=== PATIENT | female | born 1990 | race African-American/Black ===

== ENCOUNTER → 2017-04-24 | Outpatient (CLI) | payer MEDICAID ==
--- NOTE | 2017-04-25 10:30 | RADIOLOGY REPORT (SQ) ---
EXAM DESCRIPTION: U/S THYROID/SFT TISS HD NECK COMPLETED DATE/TIME: 04/24/2017 7:09 pm REASON FOR STUDY: LOCALIZED ENLARGED LYMPH NODES R59.0 LOCALIZED ENLARGED LYMPH NODES COMPARISON: None. TECHNIQUE: Dynamic and static romero-scale images acquired of the thyroid gland. Selected additional c olor/power Doppler images recorded. All images stored to PACS. LIMITATIONS: None. FINDINGS: RIGHT LOBE: Normal size, 4.3 x 1.4 x 1.3 cm in size. Homogeneous echotexture. No solid ma sses. 3 mm right mid benign colloid cyst. LEFT LOBE: Normal size, 3.5 x 1.3 x 0.9 cm in size. . Homogeneous echotexture. No solid masses. 3 mm left lower pole benign colloid cyst. ISTHMUS: Normal size. Homogeneous echotexture. No cystic or solid masses. OTHER: In the right submandibular region, a 9 x 5 x 7 mm lymph node, and a 1.3 x 1 x 0.7 cm lymph nod e are present. These have normal central hilar fat. No worrisome features. For comparison, ultrasound of the left submandibular region was performed. Benign-appearing 1.3 x 1 cm lymph node is present with central hilar fat, no worrisome features. IMPRESSION: NORMAL THYROID ULTRASOUND. Small bilateral submandibular triangle lymph nodes without worrisome features. TECHNICAL DOCUMENTATION: JOB ID: [id number] [employer]- All Rights Reserved
== END ==
LOC: RAD 18:00
PROVIDERS: ATTEND Family Medicine
DX: R59.0 Localized enlarged lymph nodes (principal)
CPT/HCPCS: 76536

== ENCOUNTER → 2017-05-14 | Outpatient (CLI) | payer SELFPAY ==
[2017-05-14 13:32] LABS: CHLAM PCR NOT DETECTED (NOT DETECT)
== END ==
LOC: LAB 11:52
PROVIDERS: ATTEND Nurse Practitioner Acute Care
DX: M54.5 Low back pain (principal); N89.8 Other specified noninflammatory disorders of vagina
CPT/HCPCS: 87086; 87210; 87491; 87591

== ENCOUNTER 2017-07-20 13:31 | Emergency (ER) | payer MEDICAID, OTHER ==
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
[2017-07-20 16:35] VITALS: BP 104/58
== END 2017-07-20 16:34 | disposition home or self-care (01) ==
LOC: ER 13:31
DX: S16.1XXA Strain of muscle, fascia and tendon at neck level, initial encounter (principal); R07.89 Other chest pain; V49.40XA Driver injured in collision with unspecified motor vehicles in traffic accident, initial encounter
CPT/HCPCS: 71046; 99283

== ENCOUNTER 2019-01-25 00:23 | Emergency (ER) | payer OTHER, MEDICAID ==
[2019-01-25] MEDS ORDERED: ONDANSETRON 4 MG TAB.RAPDIS PO ONE (04:53)
[2019-01-25] MEDS ORDERED: HYDROCODONE/ACETAMINOPHEN 5-325 MG TABLET PO ONE (04:53)
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
[2019-01-25] MEDS ORDERED: HYDROCODONE/ACETAMINOPHEN 5-325 MG (6 TAB/ER DISP) PO PRN (07:07)
[2019-01-25 07:33] VITALS: BP 118/78
== END 2019-01-25 07:31 | disposition home or self-care (01) ==
LOC: ER 00:23
DX: S80.12XA Contusion of left lower leg, initial encounter (principal); S40.022A Contusion of left upper arm, initial encounter; M25.552 Pain in left hip; M25.522 Pain in left elbow; M25.512 Pain in left shoulder; M79.652 Pain in left thigh; V49.40XA Driver injured in collision with unspecified motor vehicles in traffic accident, initial encounter
CPT/HCPCS: 99283; 73080; 73502; 73030; 73590; S0119

== ENCOUNTER → 2019-03-26 | Outpatient (CLI) | payer OTHER, MEDICAID ==
--- NOTE | 2019-03-26 17:03 | RADIOLOGY REPORT (SQ) ---
EXAM DESCRIPTION: C SP 3 VWS OR LESS COMPLETED DATE/TIME: 03/26/2019 3:59 pm REASON FOR STUDY: PARESTHESIA OF SKIN R20.2 PARESTHESIA OF SKIN COMPARISON: None. NUMBER OF VIEWS: Two views. TECHNIQUE: AP and lateral radiographic images acquired of the cervical spine. LIMITATIONS: None. FINDINGS: MINERALIZATION: Normal. ALIGNMENT: Anatomic. VERTEBRAE: Vertebral bodies of normal height. DISCS: No significant disc space narrowing. No large osteophytes. HARDWARE: None in the spine. SOFT TISSUES: No masses or calcifications. Lung apices clear. OTHER: No other significant finding. IMPRESSION: NO SIGNIFICANT FINDING. TECHNICAL DOCUMENTATION: JOB ID: [id number] [employer]- All Rights Reserved Reading location - IP/workstation name: [email or web address]
== END ==
LOC: OD 15:48
PROVIDERS: ATTEND Family Medicine
DX: R20.2 Paresthesia of skin (principal)
CPT/HCPCS: 72040